=== PATIENT | male | born 2000 | race Caucasian/White ===

== ENCOUNTER → 2018-10-11 | Emergency (ER) | payer OTHER ==
[~2018-10-11] VITALS: Ht 177.8 cm; Wt 59.0 kg
== END | disposition left against medical advice (07) ==
LOC: ER 00:01
DX: Z53.20 Procedure and treatment not carried out because of patient's decision for unspecified reasons (principal)

== ENCOUNTER 2019-12-30 22:18 | Emergency (ER) | payer OTHER ==
[~2019-12-30] VITALS: Ht 177.8 cm; Wt 68.0 kg
== END 2019-12-31 01:32 | disposition home or self-care (01) ==
LOC: ER 22:18
DX: B34.9 Viral infection, unspecified (principal); R07.0 Pain in throat

== ENCOUNTER → 2020-01-18 | Emergency (ER) | payer OTHER ==
[~2020-01-18] VITALS: Ht 177.8 cm; Wt 68.0 kg
== END | disposition home or self-care (01) ==
LOC: ER 15:03
DX: Z03.818 Encounter for observation for suspected exposure to other biological agents ruled out (principal)